=== PATIENT | male | born 1975 | race Caucasian/White ===

== ENCOUNTER 2019-09-13 09:59 | Emergency (ER) | payer OTHER ==
[~2019-09-13] VITALS: Ht 177.8 cm; Wt 97.5 kg
[~2019-09-13 09:59] MED LIST: AMOXICILLIN 50500 MG PO; BACTRIM DS TAB1 EACH PO; BACTROBAN22 GM TP; LORTABELXR PO; ZOFRAN ODT4 MG PO
[2019-09-13] MEDS ORDERED: MELOXICAM15 MG PO (10:12)
[2019-09-13 11:29] LABS: URINE BILIRUBIN NEGATIVE (Negative); URINE BLOOD NEGATIVE (Negative); URINE CLARITY CLEAR; URINE COLOR YELLOW; URINE GLUCOSE-RANDOM NEGATIVE (Negative); URINE KETONES NEGATIVE (Negative); URINE LEUKOCYTES-REFLEX NEGATIVE (Negative); URINE NITRITE-REFLEX NEGATIVE (Negative); URINE PROTEIN NEGATIVE (Negative); URINE UROBILINOGEN 0.2 E.U./dl (0.2-1.0)
[2019-09-13] MEDS ORDERED: ULTRAM 50MG TAB50 MG PO (15:29)
[2019-09-13 15:55] VITALS: BP 115/85
== END 2019-09-13 15:55 | disposition home or self-care (01) ==
LOC: M.ERS 09:59
PROVIDERS: Personal Emergency Response Attendant
DX: K40.90 Unilateral inguinal hernia, without obstruction or gangrene, not specified as recurrent (principal)

== ENCOUNTER → 2019-11-22 | Outpatient (CLI) | payer OTHER ==
[~2019-11-22] MED LIST changes: +MELOXICAM15 MG PO; +ROXICODONE5 M2 PO; +ULTRAM 50MG TAB50 MG PO
== END ==
LOC: M.LAB 13:51
PROVIDERS: ATTEND Surgery
DX: K40.90 Unilateral inguinal hernia, without obstruction or gangrene, not specified as recurrent (principal)

== ENCOUNTER → 2019-11-24 | Day surgery (SDC) | payer OTHER ==
--- NOTE | 2019-12-01 11:46 | OP ---
[facility] [address] [place] [address] OPERATIVE REPORT Name: ELIZABETH STEWARD Room: [facility]#: [id number] Admission: 11/24/19 Attend Phys: Kinza Reese Discharge: Date of : 79 Report #: [id number] THIS REPORT FOR: //name// cc: SAYRA PRAJAPATI KEVIN ~ CC: Pablito PRAJAPATI DATE OF SERVICE: 11/24/2019 PREOPERATIVE DIAGNOSIS: Right inguinal hernia. POSTOPERATIVE DIAGNOSIS: Right indirect inguinal hernia. SURGEON: Pablito Tobar DO MYCOLOGIST: Dr. Scotty Chiu. OPERATION PERFORMED: Open right inguinal hernia repair with mesh. INDICATIONS: The patient is a 44-year-old male who presented to the office with complaints of a right inguinal bulge and associated discomfort. History of present illness and physical exam were consistent with right inguinal hernia. Risks, benefits and alternatives to surgery were discussed. Risks of bleeding, infection, damage to nearby structures, chronic pain and hernia recurrence were discussed. The patient voiced understanding and elected to proceed with surgery. DESCRIPTION OF PROCEDURE: The patient was taken to the operating theater and placed in the supine position. Bilateral SCDs were placed and preoperative antibiotics were given. General anesthesia was induced without complication. The patient's right groin was prepped and draped in the standard sterile fashion. Timeout was performed and all were in agreement. Next, a 4-cm incision was made in between the ASIS and the right pubic tubercle using a #15 blade scalpel. Dissection was carried through the subcutaneous fat and Jinny's fascia using electrocautery. Retractors were used to dissect down to the external oblique fascia. Once the fascial fibers were encountered, a stab incision was made with a 15 blade scalpel and the edges of the external oblique fascia were grasped with hemostats. Using Metzenbaum scissors, the external oblique fascia was opened to the external ring and lateral for 2 cm from the initial incision. Next, using blunt dissection, the cord structures and cremasteric muscles were gently swept off of the shelving edge and external oblique fascia. Using a finger, the cord and structures were encircled at the pubic tubercle. Next, a Liu drain was placed underneath the cord. Next, the cremaster fibers were split along the path of the cord structures. A large cord lipoma was found and this was grasped with a hemostat[place] [address] OPERATIVE REPORT Name: ELIZABETH STEWARD Room: [facility].#: [id number] Admission: 11/24/19 Attend Phys: Kinza Reese Discharge: Date of : 79 Report #: [id number] and cremasteric fibers were bluntly dissected free from the cord lipoma. The cord lipoma was dissected free until the internal ring where it was grasped with a right angle clamp, transected, and then suture ligated using a 2-0 silk tie. Next, the cord structures were gently and the cremasteric muscles were dissected free from the vas deferens where a hernia sac was noted. The hernia sac was then elevated using a hemostat and the cord structures including the vas deferens were gently swept off of the hernia sac. The hernia sac was rather large and during dissection was inadvertently opened. There were no contents within the hernia sac. The hernia sac was dissected free from surrounding structures. The very distal part of the hernia sac could not be dissected free without bringing the entire testicle into the field and so the hernia sac was ligated at its distal aspect using a 3-0 Vicryl stitch. The remainder of the sac was closed using a 3-0 Vicryl stitch and completely dissected free from the cord structures. The hernia sac was then reduced through the internal ring. At this point, a medium patch from a Bard plug and patch kit was used. There was no direct defect observed and a #1 Prolene was used to suture the patch to Juanpablo's ligament with 1.5 cm medial overlap to the stitch. The inferior part of the mesh was sutured in a running fashion from the Juanpablo ligament stitch to the inferior edge of the external oblique. This was the shelving border. Therafter, a medial stitch was placed from the mesh to the right rectus abdominis muscle and several interrupted stitches using #1 Prolene suture were used from the mesh to the internal oblique muscle. The ilioinguinal nerve could be seen superior to the stitches placed and far away from our dissection, so this was left intact and undisturbed. Once this had been completed, the tails of the mesh were placed around the cord and a new internal ring was recreated. The mesh tails were sutured together using #1 PDS suture in an interrupted fashion. There was adequate room for the cord to slide through the newly created internal ring without strangulation. The tails were then tucked beneath the tissue underneath the external oblique fascia. The mesh laid flat and was without tension. The cord structures appeared intact. The wound was hemostatic. At this point, a 2-0 Vicryl stitch was used to close the external oblique fascia in a running fashion. Subcutaneous tissue and Jinny's fascia was closed using 3-0 Vicryl in an interrupted inverted fashion. The skin was closed using a 4-0 Monocryl in a running fashion. The wound was dressed with Dermabond. All sponge, needle and instrument counts were correct x 2. This concluded the procedure. ESTIMATED BLOOD LOSS: 5 mL. COMPLICATIONS: None. FINDINGS: Large cord lipoma, large indirect defect with hernia sac. SPECIMENS: [place] [address] OPERATIVE REPORT Name: ELIZABETH STEWARD Room: [facility]#: [id number] Admission: 11/24/19 Attend Phys: Kinza Reese Discharge: Date of : 79 Report #: [id number] DRAINS: None. ANESTHESIA: General endotracheal anesthesia. DISPOSITION: The patient was extubated in the operating theater successfully and taken to the PACU in stable condition. <ELECTRONICALLY SIGNED> By: Pablito Tobar DO 12/01/19 [id number] [id number] Tobar DO /nt
== END | disposition home or self-care (01) ==
LOC: M.SUR
PROVIDERS: ATTEND Surgery
DX: K40.90 Unilateral inguinal hernia, without obstruction or gangrene, not specified as recurrent (principal); Z79.899 Other long term (current) drug therapy; Z98.890 Other specified postprocedural states